=== PATIENT | female | born 1985 | race African-American/Black ===

== ENCOUNTER 2016-11-26 08:35 | Emergency (ER) | payer MEDICAID ==
--- NOTE | 2016-11-26 09:15 | ERNOTE ---
Lower Extremity HPI - Narrative Date of Service: 11/26/16 - General Lower Extremities Pain: ankle: right - PAIN WHEN FELL LAST NIGHT. Time Seen by Provider: 11/26/16 09:12 Source: patient Exam Limitations: no limitations - Immun/Allergies/Home Medications Immunizations: IMMUNIZATION HX Immunizations Up to Date No History of Influenza Vaccine No Allergies/Adverse Reactions: Allergies Allergy/AdvReac Type Severity Reaction Status Date / Time No Known Allergies Allergy Verified 11/26/16 08:45 Home Medications: HOME MEDICATIONS NK [No Home Medication] 08/05/16 [Last Taken Unknown] - History of Present Illness Narrative: PT STATES SHE FELL AND TWISTED HER RIGHT ANKLE LAST NIGHT. STATES IT HURTS MOST MEDIALLY. STATES SHE USED ICE RIGHT AWAY AND SEVERAL PAIRS OF SOCKS BECAUSE SHE DID NOT HAVE AN SABRINA WRAP. SHE HAS BEEN WALKING ON IT. SHE DENIES OTHER INJURY. Method of Injury: Reports: fell, twisted Modifying Factors - (Improves): Reports: cold therapy, pain medication, rest Modifying Factors - (Worsens): Reports: movement Associated Symptoms: Denies: unable to bear weight Other Injuries: Reports: none Subsequent Symptoms: Denies: sensory loss Prior Treament: Denies: recently seen Review of Systems - Review of Systems Constitutional: Present: See HPI Musculoskeletal: Present: See HPI, joint pain Skin: Present: no symptoms reported Neurological: Present: no symptoms reported All Other Systems: All systems neg except as marked - Patient's Past Medical History Patient History - Medical: No pertinent hx Patient History - Cardiac/Respiratory: No pertinent hx Patient History - Cancer: No Hx of Cancer Patient History - Surgical Procedures: No surgical history Patient History - Other: None - Social History Living Situations: home Psych History: No pertinent hx Smoking Status: Current every day smoker Have you smoked in the past 12 months: Yes - Immunizations Immunizations Up to Date: No History of Influenza Vaccine: No Physical Exam - Physical Exam General Appearance: Present: wd/wn, alert, mild distress Extremity Exam: Present: normal inspection, no edema, normal range of motion, other - MILD RIGHT LOWER MEDIAL ANKLE PAIN . NO SWELLING OR DEFORMITY. Neurological Exam: Present: alert, oriented, normal mood/affect Skin Exam: Present: normal color, warm/dry ED Progress - Vital Signs Vital Signs: Vital Signs 11/26/16 08:40 Temperature 36.3 C L Pulse Rate 88 Respiratory 16 Rate Blood Pressure 113/82 O2 Sat by Pulse 100 Oximetry - X-Ray X-Ray #1 X-Ray: ankle - RIGHT X-ray Comments: Patient Patient Name:BRISA STRICKLAND Date: 1985 Sex: F Order Number: [id number] Unique Exam ID: [id number] Exam Requested: [id number] - Ankle Minimum 3 Views RT * Date Scheduled: Study Priority: Requesting Service: Requesting Physician: Miguel Ángel Davis Reason for Exam: Radiological Report : Exam Date: 11/26/2016 08:44 Ordering Physician: Miguel Ángel Davis HISTORY: Fell down stairs yesterday with persistent right ankle pain THREE VIEW RIGHT ANKLE COMPARISON: None Technique: AP, oblique, and lateral views of the ankle were obtained. Findings: The ankle mortise is maintained. The articulating surface of the talus is maintained. The distal aspects of the tibia and fibula within normal limits. I do not see evidence for significant soft tissue swelling. The proximal 5th metatarsal is normal in appearance on the lateral view. The visualized tarsal bones are grossly normal in appearance; if there is clinical concern, followup three view foot examination is recommended. IMPRESSION: 1. NO ACUTE OSSEOUS ABNORMALITY Electronically signed by Micah Ortiz M.D.. - Progress/Reassessment Chief Complaint: Ankle Injury/ Pain Plan - Plan Plan: RICE treatment. Departure Clinical Impression: Moderate right ankle sprain, Right ankle sprain - Departure Disposition: Home Follow Up Needed Condition: Good Instructions: Ankle Sprain, [id number], Form - Excuse from Work, School, or Physical Activity Additional Instructions: gentle activity, ice for 30 mins every 8 hours for 1-2 days , followed with heat. Use tylenol 650 mg every 6 hours , or , ibuprofen 400-600 mg every 8 hours for comfort. Recheck with your family doctor if any further problems.
[2016-11-26 09:57] VITALS: BP 120/57
== END 2016-11-26 09:59 | disposition home or self-care (01) ==
LOC: ER 08:35
DX: S93.401A Sprain of unspecified ligament of right ankle, initial encounter (principal); F17.210 Nicotine dependence, cigarettes, uncomplicated; W19.XXXA Unspecified fall, initial encounter